=== PATIENT | male | born 1975 | race Caucasian/White ===

== ENCOUNTER → 2020-09-28 | Outpatient (CLI) | payer OTHER | END | disposition home or self-care (01) | LOC: COVID19 15:34 | PROVIDERS: ATTEND Family Medicine | DX: Z20.828 Contact with and (suspected) exposure to other viral communicable diseases (principal) ==

== ENCOUNTER → 2020-12-08 | Outpatient (CLI) | payer OTHER | END | disposition home or self-care (01) | LOC: COVID19 16:06 | PROVIDERS: ATTEND Family Medicine | DX: Z20.822 Contact with and (suspected) exposure to COVID-19 (principal) ==

== ENCOUNTER → 2022-11-14 | Outpatient (CLI) | payer OTHER | END | disposition home or self-care (01) | LOC: CT 11:00 | PROVIDERS: ATTEND Family Medicine | DX: H54.7 Unspecified visual loss (principal) ==

== ENCOUNTER 2022-12-04 19:08 | Inpatient (IN) | payer OTHER ==
[~2022-12-04] VITALS: Ht 180.3 cm; Wt 88.2 kg
[2022-12-04 19:28] VITALS: BP 135/92
[2022-12-04 20:49] LABS: ALKALINE PHOSPHATASE 88 U/L (46-116); BUN 8 mg/dl (9-23); CHLORIDE 94 mmol/L (98-107); POTASSIUM 3.7 mmol/L (3.4-5.1); SGPT/ALT 83 U/L (10-49); TOTAL PROTEIN 7.5 gm/dL (6.0-8.0)
[2022-12-04 21:58] LABS: BILIRUBIN Negative (Negative); BLOOD Negative (Negative); CLARITY Clear (Clear); COLOR Yellow (Yellow); GLUCOSE 3+ (Negative); KETONE 1+ (Negative); LEUKO ESTERASE Negative (Negative); NITRITE Negative (Negative); PH 6.5 (4.5-8.0); SPECIFIC GRAVITY >= 1.030 (1.001-1.030); UROBILINOGEN 0.2 E.U./dl (0.0-1.0)
[2022-12-04 22:00] VITALS: BP 132/86
[2022-12-04 22:45] LABS: BASO # 0.1 10*3/uL (0.0-0.1); BASO % 0.8 % (0.0-1.0); EOS # 0.3 10*3/uL (0.0-0.4); EOS % 3.6 % (1.0-4.0); HEMATOCRIT 43.3 % (42.0-52.0); LYMPH # 2.7 10*3/uL (1.3-4.4); LYMPH % 32.4 % (27.0-41.0); MEAN CELL VOLUME 83.6 fl (80.0-94.0); MEAN CORPUSCULAR HGB 29.5 pg (27.0-31.0); MEAN CORPUSCULAR HGB CONC 35.3 g/dl (33.0-37.0); MEAN PLATELET VOLUME 10.9 fl (9.6-12.3); MONO # 0.5 10*3/uL (0.1-1.0); MONO % 6.5 % (3.0-9.0); NEUT # 4.7 10*3/uL (2.3-7.9); NEUT % 56.5 % (47.0-73.0); PLATELET COUNT AUTOMATED 204 10*3/uL (130-400); RED BLOOD COUNT 5.18 10*6/uL (4.50-5.90); RED CELL DISTRI WIDTH 12.1 % (0-14.5); WHITE BLOOD COUNT 8.3 10*3/uL (4.8-10.8)
[2022-12-04 23:00] VITALS: BP 127/87
[2022-12-04] MEDS ORDERED: COLCHICINE0.6 M2 PO (23:00)
[2022-12-04] MEDS ORDERED: FEBUXOSTAT40 MG PO (23:00)
[2022-12-04] MEDS ORDERED: FAMOTIDINE40 MG PO (23:01)
[2022-12-04] MEDS ORDERED: SERTRALINE HYDR50 MG PO (23:02)
[2022-12-04] MEDS ORDERED: PEPCID20 MG PO (23:03)
[2022-12-05 06:54] LABS: BASO # 0.1 10*3/uL (0.0-0.1); BASO % 0.8 % (0.0-1.0); EOS # 0.5 10*3/uL (0.0-0.4); EOS % 6.8 % (1.0-4.0); HEMATOCRIT 43.7 % (42.0-52.0); LYMPH # 2.5 10*3/uL (1.3-4.4); LYMPH % 33.4 % (27.0-41.0); MEAN CORPUSCULAR HGB 28.9 pg (27.0-31.0); MEAN CORPUSCULAR HGB CONC 33.6 g/dl (33.0-37.0); MEAN PLATELET VOLUME 11.6 fl (9.6-12.3); MONO # 0.6 10*3/uL (0.1-1.0); MONO % 8.7 % (3.0-9.0); NEUT # 3.7 10*3/uL (2.3-7.9); PLATELET COUNT AUTOMATED 191 10*3/uL (130-400); RED BLOOD COUNT 5.08 10*6/uL (4.50-5.90); RED CELL DISTRI WIDTH 12.5 % (0-14.5); WHITE BLOOD COUNT 7.4 10*3/uL (4.8-10.8)
[2022-12-05 08:00] VITALS: BP 119/72
[2022-12-05 08:30] LABS: VITAMIN D, 25-HYDROXY 19.5 ng/mL (30-100)
[2022-12-05 08:33] LABS: ALKALINE PHOSPHATASE 70 U/L (46-116); BUN 7 mg/dl (9-23); CHLORIDE 100 mmol/L (98-107); CHOLESTEROL 143 mg/dL (<200); FREE T4 1.28 ng/dl (0.89-1.76); LDL CHOLESTEROL 74 mg/dL (9-159); POTASSIUM 3.5 mmol/L (3.4-5.1); SGPT/ALT 68 U/L (10-49); THYROID STIM HORMONE (HS) 1.438 uIU/ml (0.550-4.780); TOTAL PROTEIN 6.2 gm/dL (6.0-8.0); TRIGLYCERIDES 174 mg/dl (<150)
[2022-12-05 12:00] VITALS: BP 133/72
[2022-12-05] MEDS ORDERED: VITAMIN D350 MC2 PO (12:35)
[2022-12-05 16:00] VITALS: BP 132/86
[2022-12-05] MEDS ORDERED: HUMALOG100 UNIT/1 SC (16:42)
[2022-12-05] MEDS ORDERED: LANTUS SOL100 UNIT/1 SC (16:42)
== END 2022-12-05 18:20 | disposition home or self-care (01) | DRG 638 ==
LOC: ED 19:08 → EDHOLD 21:43 → 4E 21:43
PROVIDERS: Student in an Organized Health Care Education/Training Program; ADMIT Emergency Medicine; ATTEND Emergency Medicine
DX: E11.65 Type 2 diabetes mellitus with hyperglycemia (principal); E87.1 Hypo-osmolality and hyponatremia; M10.9 Gout, unspecified; K21.9 Gastro-esophageal reflux disease without esophagitis; R74.01 Elevation of levels of liver transaminase levels; R63.1 Polydipsia; R63.4 Abnormal weight loss; E87.8 Other disorders of electrolyte and fluid balance, not elsewhere classified; Z88.0 Allergy status to penicillin; Z90.49 Acquired absence of other specified parts of digestive tract; Z83.3 Family history of diabetes mellitus

== ENCOUNTER → 2023-02-12 | Day surgery (SDC) | payer OTHER ==
[~2023-02-12] VITALS: Ht 180.3 cm; Wt 78.0 kg
[~2023-02-12] MED LIST: BASAG SOL SQ; COLCHICINE0.6 M2 PO; FAMOTIDINE40 MG PO; FEBUXOSTAT40 MG PO; HUMALOG100 UNIT/1 SC; LANTUS SOL100 UNIT/1 SC; PEPCID20 MG PO; SERTRALINE HYDR50 MG PO; VITAMIN D350 MC2 PO
[2023-02-12 09:00] VITALS: BP 117/72
[2023-02-12 09:42] VITALS: BP 84/47
[2023-02-12 09:57] VITALS: BP 107/67
[2023-02-12 10:12] VITALS: BP 113/75
== END | disposition home or self-care (01) ==
LOC: SDC 02-08 10:15
PROVIDERS: ATTEND Surgery
DX: Z12.11 Encounter for screening for malignant neoplasm of colon (principal); K63.5 Polyp of colon; K57.30 Diverticulosis of large intestine without perforation or abscess without bleeding; K21.9 Gastro-esophageal reflux disease without esophagitis; M10.9 Gout, unspecified; Z90.49 Acquired absence of other specified parts of digestive tract; E11.9 Type 2 diabetes mellitus without complications; F32.A Depression, unspecified; Z88.0 Allergy status to penicillin; Z79.899 Other long term (current) drug therapy

== ENCOUNTER → 2024-04-01 | Outpatient (CLI) | payer OTHER | END | disposition home or self-care (01) | LOC: RAD 10:26 | PROVIDERS: ATTEND Nurse Practitioner Family | DX: M25.562 Pain in left knee (principal) ==